=== PATIENT | male | born 1935 | race Caucasian/White ===

== ENCOUNTER 2021-07-30 10:15 | Outpatient (CLI) | payer MEDICARE | END 2021-07-30 10:16 | disposition home or self-care (01) | LOC: PET 10:15 | PROVIDERS: ATTEND Internal Medicine Hematology & Oncology | DX: C83.31 Diffuse large B-cell lymphoma, lymph nodes of head, face, and neck (principal); R19.09 Other intra-abdominal and pelvic swelling, mass and lump | CPT/HCPCS: 78815; A9552 ==

== ENCOUNTER 2021-10-01 10:15 | Outpatient (CLI) | payer MEDICARE | END 2021-10-01 10:16 | disposition home or self-care (01) | LOC: PET 10:15 | PROVIDERS: ATTEND Internal Medicine Hematology & Oncology | DX: C83.31 Diffuse large B-cell lymphoma, lymph nodes of head, face, and neck (principal) | CPT/HCPCS: 78815; A9552 ==

== ENCOUNTER 2022-01-06 11:00 | Outpatient (CLI) | payer MEDICARE | END 2022-01-06 11:01 | disposition home or self-care (01) | LOC: PET 11:00 | PROVIDERS: ATTEND Internal Medicine Hematology & Oncology | DX: C83.30 Diffuse large B-cell lymphoma, unspecified site (principal) | CPT/HCPCS: 78815; A9552 ==

== ENCOUNTER 2022-03-16 08:05 | Emergency (ER) | payer MEDICARE ==
[2022-03-16 10:13] LABS: #Eosinphils 0.5 thou/uL (0.0-0.7); #Lymphocytes 2.3 thou/uL (1.20-3.40); #Neutrophils 9.7 thou/uL (1.40-6.50); %Basophils 0.2 % (0.0-1.0); %Eosinophils 3.7 % (0.0-10.0); %Lymphocytes 17.2 % (21.0-51.0); %Monocytes 7.5 % (0.0-10.0); %Neutrophils 71.3 % (42.0-75.0); Hemoglobin 11.7 g/dL (14.0-18.0); Mean Corpuscular HGB CONC 32.1 g/dL (32.0-36.0); Mean Corpuscular Hemoglobin 31.5 pg (27.0-31.0); Mean Corpuscular Volume 98.3 fl (78.0-98.0); Mean Platelet Volume 7.2 fL (7.4-10.4); Platelet Count 122 10x3/uL (130-400); RBC Distribution Width 16.6 % (11.5-14.5); Red Blood Cell (RBC) Count 3.71 mill/uL (4.70-6.10); White Blood Cell (WBC) Count 13.6 10x3/uL (4.8-10.8)
[2022-03-16 10:25] LABS: ALT (SGPT) 26 U/L (8-55); AST (SGOT) 24 U/L (5-34); Albumin 3.3 g/dL (3.4-4.8); Alkaline Phosphatase 185 U/L (40-110); Anion Gap 13 mmol/L (10-20); BUN (Urea Nitrogen) 18 mg/dL (8.4-25.7); Bilirubin, Total 0.5 mg/dL (0.2-1.2); Calc. Creatinine Clearance 0 mL/min (70-130); Calcium 8.8 mg/dL (7.8-10.44); Carbon Dioxide 26 mmol/L (23-31); Chloride 107 mmol/L (98-107); Estimated GFR 55; Globulin 2.3 g/dL (2.4-3.5); Glucose 137 mg/dL (83-110); Protein, Total 5.6 g/dL (5.8-8.1); Sodium 142 mmol/L (136-145)
== END 2022-03-16 12:33 | disposition home or self-care (01) ==
LOC: ERS 08:05
DX: B37.41 Candidal cystitis and urethritis (principal); R32 Unspecified urinary incontinence
CPT/HCPCS: 36415; 51702; 80053; 85025

== ENCOUNTER → 2022-04-15 | Outpatient (CLI) | payer MEDICARE | LOC: PET 08:45 | PROVIDERS: ATTEND Internal Medicine Hematology & Oncology | DX: C83.31 Diffuse large B-cell lymphoma, lymph nodes of head, face, and neck (principal); R59.0 Localized enlarged lymph nodes | CPT/HCPCS: 78815; A9552 ==

== ENCOUNTER 2022-05-14 18:17 | Inpatient (IN) | payer MEDICARE ==
[2022-05-14] MEDS ORDERED: Cefepime 2 GM VIAL ONE (18:49)
[2022-05-14 18:52] LABS: Actual Bicarbonate (HCO3a) 16.2 mEq/L (22-28); Analyzer IN Cardio ER; Base Excess (BEa) -8.5 mEq/L (-2.0 to +3.0); CO2 Tension 30.7 mmHg (35.0-45.0); Calcium, Ionized (arterial) 1.22 mmol/L (1.12-1.30); Carboxyhemoglobin (COHb) 1.2 gm% (0.0-3.0); Hemoglobin (Hb) 11.6 g/dL (14.0-18.0); O2 Tension (PaO2), arterial 73.8 mmHg (> 60.0); Potassium - ABG Lab 4.21 mmol/L (3.70-5.30); pH, Arterial 7.34 (7.35-7.45)
[2022-05-14] MEDS ORDERED: Vancomycin 1 GM/200 ML (FROZEN) BAG ONE (19:02)
[2022-05-14 19:04] LABS: Puncture Site RRA
[2022-05-14 19:05] LABS: Hemoglobin 11.1 g/dL (14.0-18.0); Mean Corpuscular Hemoglobin 32.3 pg (27.0-31.0); Mean Corpuscular Volume 97.6 fl (78.0-98.0); Mean Platelet Volume 9.4 fL (7.4-10.4); Platelet Count 94 10x3/uL (130-400); RBC Distribution Width 14.9 % (11.5-14.5); Red Blood Cell (RBC) Count 3.45 mill/uL (4.70-6.10); White Blood Cell (WBC) Count 52.9 10x3/uL (4.8-10.8)
[2022-05-14 19:05] LABS: ALV-art Gradient 315.625 mmHg (0-20)
[2022-05-14 19:23] LABS: Acetaminophen Less than 10.0 mcg/mL (10.0-30.0); Alcohol Less than 10 mg/dL (Less than 10); CK (CPK) 59 U/L (30-200); Salicylate Less than 8.0 mg/dL (15.0-30.0)
[2022-05-14 19:26] LABS: ALT (SGPT) 77 U/L (8-55); AST (SGOT) 122 U/L (5-34); Albumin 3.1 g/dL (3.4-4.8); Alkaline Phosphatase 214 U/L (40-110); Anion Gap 24 mmol/L (10-20); BUN (Urea Nitrogen) 46 mg/dL (8.4-25.7); Bilirubin, Total 0.7 mg/dL (0.2-1.2); Calc. Creatinine Clearance 0 mL/min (70-130); Calcium 9.1 mg/dL (7.8-10.44); Carbon Dioxide 16 mmol/L (23-31); Chloride 106 mmol/L (98-107); Estimated GFR 35; Glucose 122 mg/dL (83-110); Lipase 16 U/L (8-78); Potassium 4.4 mmol/L (3.5-5.1); Protein, Total 5.1 g/dL (5.8-8.1); Sodium 142 mmol/L (136-145)
[2022-05-14 19:27] LABS: Band 18 % (5-11); MDiff Complete? YES; Monocytes 3 % (0-10); Neutrophil 79 % (42-75); Ovalocytes SLIGHT = 2-5 cells (100X) (0-1/hpf); Platelet Morphology Comment Appears Adequate; Polychromasia SLIGHT = 2-3 cells (100X) (0-2/hpf); Toxic Granulation SLIGHT
[2022-05-14 19:30] LABS: Phosphorus 6.4 mg/dL (2.3-4.7)
[2022-05-14 19:32] LABS: Magnesium 1.9 mg/dL (1.6-2.6)
[2022-05-14 19:52] LABS: CKMB 8.5 ng/mL (0-6.6)
[2022-05-14] MEDS ORDERED: Acetaminophen 325 MG TAB PO PRN (20:29)
[2022-05-14] MEDS ORDERED: Ondansetron PF 4 MG/2 ML Vial IVP PRN (20:29)
[2022-05-14] MEDS ORDERED: Acetaminophen 650 MG Suppository PR PRN (20:29)
[2022-05-14] MEDS ORDERED: Senokot S 8.6-50 MG TAB PO PRN (20:29)
[2022-05-14] MEDS ORDERED: Bisacodyl 10 MG SUPP PR PRN (20:29)
[2022-05-14] MEDS ORDERED: Bisacodyl 5 MG TAB PO PRN (20:29)
[2022-05-14] MEDS ORDERED: Aspirin 325 MG TAB PO SCH (20:30)
[2022-05-14 20:44] LABS: Fibrinogen 328 mg/dL (253-463)
[2022-05-14 20:45] LABS: D-Dimer Test 1.65 *mcg/mL (0.27-0.43); INR-International Normal Ratio 1.3; PTT 30.6 sec (22.9-36.1); Prothrombin Time 16.4 sec (12.0-14.7)
[2022-05-14 20:59] LABS: Platelet Count 68 10x3/uL (130-400)
[2022-05-14] MEDS ORDERED: Vancomycin HCl 1 GM in Sodium Chloride 0.9% 250 ML 300 ML IVPB SCH (21:00)
[2022-05-14 21:10] LABS: Bilirubin Negative (Negative); Blood, Urine Negative (Negative); Clarity Turbid (Clear); Glucose, Urine (Dipstick) Normal (Negative); Ketone, Urine Negative (Negative); Leukocyte 75 Leu/uL (Negative); Nitrite Negative (Negative); Protein, Urine (Dipstick) 30 mg/dL (Neg-Trace); RBC/HPF 0-3 HPF (0-3); Squamous Epithelial 0-3 HPF (0-3); Urobilinogen Normal mg/dL (Less than 2); WBC/HPF 21-50 HPF (0-3)
[2022-05-14 21:11] LABS: Bacteria/HPF 1+ HPF (None Seen)
[2022-05-14] MEDS ORDERED: Sodium Chloride 0.9% 1,000 ML IV SCH (21:30)
[2022-05-14 21:31] LABS: SARS-CoV-2 NAA Rapid Test DETECTED (NotDetected)
[2022-05-14 21:52] LABS: Troponin I 1.662 ng/mL (< 0.028)
[2022-05-14] MEDS ORDERED: Dexamethasone 10 MG/ML VIAL SLOW IVP SCH (22:00)
[2022-05-14] MEDS ORDERED: Dexmedetomidine In 0.9 % NaCl 100 ML IVPB SCH (23:45)
[2022-05-14] MEDS ORDERED: Lactated Ringer's 1,000 ML IV SCH (23:59)
[2022-05-15 00:26] LABS: Troponin I 3.113 ng/mL (< 0.028)
[2022-05-15 04:04] LABS: Hemoglobin 9.7 g/dL (14.0-18.0); Mean Corpuscular HGB CONC 33.7 g/dL (32.0-36.0); Mean Corpuscular Hemoglobin 32.7 pg (27.0-31.0); Mean Platelet Volume 9.8 fL (7.4-10.4); Platelet Count 67 10x3/uL (130-400); RBC Distribution Width 14.6 % (11.5-14.5); Red Blood Cell (RBC) Count 2.96 mill/uL (4.70-6.10); White Blood Cell (WBC) Count 33.2 10x3/uL (4.8-10.8)
[2022-05-15 04:06] LABS: Hemoglobin A1c 5.3 % (4.0-6.0)
[2022-05-15 04:19] LABS: ALT (SGPT) 76 U/L (8-55); AST (SGOT) 138 U/L (5-34); Albumin 2.7 g/dL (3.4-4.8); Alkaline Phosphatase 177 U/L (40-110); Anion Gap 16 mmol/L (10-20); BUN (Urea Nitrogen) 47 mg/dL (8.4-25.7); Bilirubin, Total 0.6 mg/dL (0.2-1.2); Calc. Creatinine Clearance 39 mL/min (70-130); Calcium 8.4 mg/dL (7.8-10.44); Carbon Dioxide 21 mmol/L (23-31); Cardiac Risk 3.6 (Less than 4.5); Chloride 112 mmol/L (98-107); Cholesterol 69 mg/dl (< 200 Desired); Estimated GFR 44; Globulin 1.9 g/dL (2.4-3.5); Glucose 116 mg/dL (83-110); HDL Cholesterol 19 mg/dL (>60 Neg Risk); LDL Cholesterol, Calculated 19 mg/dL; Magnesium 1.7 mg/dL (1.6-2.6); Potassium 4.1 mmol/L (3.5-5.1); Protein, Total 4.6 g/dL (5.8-8.1); Sodium 145 mmol/L (136-145); Triglycerides 155 mg/dL (Less than 150)
[2022-05-15 04:29] LABS: Anisocytosis SLIGHT = 6-15 cells (100X) (0-5/hpf); Band 8 % (5-11); MDiff Complete? YES; Neutrophil 92 % (42-75); Platelet Morphology Comment Appears Decreased; Polychromasia SLIGHT = 2-3 cells (100X) (0-2/hpf); Toxic Granulation SLIGHT
[2022-05-15] MEDS ORDERED: Lactated Ringer's 1,000 ML IV SCH (04:45)
[2022-05-15 04:57] LABS: Bacteria/HPF 4+ HPF (None Seen); Bilirubin Negative (Negative); Blood, Urine Negative (Negative); CAUTI Indications for Culture Alt mental st,lethar; Clarity Turbid (Clear); Glucose, Urine (Dipstick) Normal (Negative); Ketone, Urine Negative (Negative); Leukocyte 250 Leu/uL (Negative); Nitrite Negative (Negative); Protein, Urine (Dipstick) 30 mg/dL (Neg-Trace); RBC/HPF 0-3 HPF (0-3); Specific Gravity, Urine 1.019 (1.002-1.036); Squamous Epithelial None Seen HPF (0-3); Urobilinogen Normal mg/dL (Less than 2); WBC/HPF Greater than 50 HPF (0-3); pH, Urine 5.5 (5.0-9.0)
[2022-05-15 05:02] LABS: Urine Culture Reflex Yes Yes
[2022-05-15 05:10] LABS: Legionella Urinary Ag Negative (Negative); Strep pneumo Urine Ag NEGATIVE (NEGATIVE)
[2022-05-15] MEDS: Vancomycin 1 GM in Premix Bag 1 BAG IVPB SCH (06:02)
[2022-05-15] MEDS: Cefepime 2 GM in Sodium Chloride 0.9% 100 ML IVPB SCH ×2 (07:52→20:14)
[2022-05-15] MEDS: Pantoprazole 40 MG VIAL IVP SCH (07:53)
[2022-05-15] MEDS ORDERED: Aspirin Chewable 81 MG TAB PO SCH (09:00)
[2022-05-15] MEDS ORDERED: Aspirin 300 MG Suppository PR SCH (09:00)
[2022-05-15] MEDS ORDERED: Dexamethasone 10 MG/ML VIAL SLOW IVP SCH (09:00)
[2022-05-15] MEDS ORDERED: FLU VACC QS2022-23(65YR UP)/PF 240 MCG/0.7 ML SYRINGE IM ONE (09:00)
[2022-05-15] MEDS ORDERED: Propofol 1,000 MG/100 ML VIAL IV ONE (10:36)
[2022-05-15] MEDS: Lorazepam 2 MG/ML VIAL SLOW IVP PRN ×2 (10:40→23:13)
[2022-05-15] MEDS: Propofol 1,000 MG/100 ML VIAL IV PRN ×2 (10:40→23:14)
[2022-05-15] MEDS ORDERED: Fentanyl CADD 100 ML ONE (10:41)
[2022-05-15] MEDS ORDERED: NOREPINEPHRINE 8 MG/250 ML-D5W 250 ML IVPB PRN ×2 (10:46→11:54)
[2022-05-15] MEDS ORDERED: Electrolyte Replacement Protocol 1 EACH IVPB PRN (10:46)
[2022-05-15 10:57] LABS: Actual Bicarbonate (HCO3a) 16.6 mEq/L (22-28); Analyzer IN Cardio ER; Base Excess (BEa) -9.9 mEq/L (-2.0 to +3.0); CO2 Tension 38.6 mmHg (35.0-45.0); Calcium, Ionized (arterial) 1.19 mmol/L (1.12-1.30); Carboxyhemoglobin (COHb) 0.2 gm% (0.0-3.0); Hemoglobin (Hb) 10.2 g/dL (14.0-18.0); Potassium - ABG Lab 3.78 mmol/L (3.70-5.30); pH, Arterial 7.25 (7.35-7.45)
[2022-05-15] MEDS ORDERED: DISCONTINUE PREVIOUS NARCOTIC PAIN MEDICATIONS AND BENZODIAZEPINES FS PRN (10:58)
[2022-05-15] MEDS ORDERED: Dextrose 5% in Water 1,000 ML IV PRN (11:00)
[2022-05-15] MEDS ORDERED: Propofol BOLUS 1,000 MG/100 ML VIAL IV PRN (11:00)
[2022-05-15] MEDS ORDERED: Fentanyl BOLUS 250 ML IVPB PRN (11:00)
[2022-05-15] MEDS ORDERED: Morphine 4 MG/ML VIAL SLOW IVP PRN (11:00)
[2022-05-15] MEDS ORDERED: Dextrose 50% Abboject 50 ML SYRINGE IVP PRN (11:00)
[2022-05-15] MEDS ORDERED: Ventilator Sedation Protocol FS PRN (11:00)
[2022-05-15] MEDS ORDERED: Electrolyte Replacement Protocol FS PRN (11:15)
[2022-05-15] MEDS: Sodium Chloride 0.45% 1,000 ML IV SCH (11:18)
[2022-05-15] MEDS ORDERED: Magnesium 2 GM/50 ML(in water) 2 GM in Premix Bag 1 BAG IVPB SCH (11:30)
[2022-05-15] MEDS ORDERED: Vecuronium 10 MG VIAL ONE (11:36)
[2022-05-15] MEDS ORDERED: Albumin 25% 100 ML ONE (11:37)
[2022-05-15] MEDS ORDERED: Albumin 25% 25 GM/100 ML BOT IVPB SCH (12:00)
[2022-05-15] MEDS ORDERED: Vecuronium 10 MG VIAL IV SCH (12:00)
[2022-05-15] MEDS ORDERED: Lactated Ringer's 500 ML IV SCH (12:00)
[2022-05-15 13:33] LABS: Puncture Site LRA
[2022-05-15] MEDS: Vecuronium 10 MG VIAL IV PRN ×3 (14:41→23:13)
[2022-05-15] MEDS: Heparin 5,000 UNITS/ML VIAL SC SCH (20:14)
[2022-05-15] MEDS: Rosuvastatin 10 MG TAB PO SCH (20:14)
[2022-05-15] MEDS ORDERED: Sterile Water 10 ML ONE (23:10)
[2022-05-16] MEDS: Sodium Chloride 0.45% 1,000 ML IV SCH ×3 (01:12→14:53)
[2022-05-16] MEDS: Lorazepam 2 MG/ML VIAL SLOW IVP PRN ×3 (02:48→22:27)
[2022-05-16 04:59] LABS: Hemoglobin 8.6 g/dL (14.0-18.0); Mean Corpuscular HGB CONC 33.8 g/dL (32.0-36.0); Mean Corpuscular Hemoglobin 32.8 pg (27.0-31.0); Mean Corpuscular Volume 96.9 fl (78.0-98.0); Mean Platelet Volume 9.8 fL (7.4-10.4); Platelet Count 52 10x3/uL (130-400); RBC Distribution Width 14.7 % (11.5-14.5); Red Blood Cell (RBC) Count 2.62 mill/uL (4.70-6.10); White Blood Cell (WBC) Count 22.7 10x3/uL (4.8-10.8)
[2022-05-16 05:24] LABS: Band 16 % (5-11); Eosinophils 1 % (0-10); MDiff Complete? YES; Neutrophil 83 % (42-75); Platelet Morphology Comment Appears Decreased; Toxic Granulation SLIGHT
[2022-05-16 05:26] LABS: ALT (SGPT) 56 U/L (8-55); AST (SGOT) 61 U/L (5-34); Albumin 2.3 g/dL (3.4-4.8); Alkaline Phosphatase 143 U/L (40-110); Anion Gap 13 mmol/L (10-20); BUN (Urea Nitrogen) 51 mg/dL (8.4-25.7); Bilirubin, Total 0.7 mg/dL (0.2-1.2); Calc. Creatinine Clearance 47 mL/min (70-130); Calcium 8.2 mg/dL (7.8-10.44); Carbon Dioxide 21 mmol/L (23-31); Chloride 112 mmol/L (98-107); Estimated GFR 55; Globulin 1.8 g/dL (2.4-3.5); Glucose 106 mg/dL (83-110); Magnesium 2.1 mg/dL (1.6-2.6); Potassium 4.1 mmol/L (3.5-5.1); Protein, Total 4.1 g/dL (5.8-8.1); Sodium 142 mmol/L (136-145)
[2022-05-16] MEDS: Vecuronium 10 MG VIAL IV PRN ×2 (05:30→22:27)
[2022-05-16] MEDS: Vancomycin 1 GM in Premix Bag 1 BAG IVPB SCH (06:56)
[2022-05-16 07:29] LABS: Actual Bicarbonate (HCO3a) 20.9 mEq/L (22-28); Analyzer IN Cardio OR; Base Excess (BEa) -3.5 mEq/L (-2.0 to +3.0); CO2 Tension 35.5 mmHg (35.0-45.0); Calcium, Ionized (arterial) 1.15 mmol/L (1.12-1.30); Carboxyhemoglobin (COHb) 1.1 gm% (0.0-3.0); Hemoglobin (Hb) 12.4 g/dL (14.0-18.0); O2 Tension (PaO2), arterial 87.8 mmHg (> 60.0); Potassium - ABG Lab 3.97 mmol/L (3.70-5.30); pH, Arterial 7.39 (7.35-7.45)
[2022-05-16 08:09] LABS: ALV-art Gradient 295.625 mmHg (0-20); Puncture Site LRA
[2022-05-16] MEDS: Cefepime 2 GM in Sodium Chloride 0.9% 100 ML IVPB SCH ×2 (08:30→20:02)
[2022-05-16] MEDS: Dexamethasone 4 mg/ml Vial SLOW IVP SCH (08:30)
[2022-05-16] MEDS: Aspirin 300 MG Suppository PR SCH (08:31)
[2022-05-16] MEDS: Pantoprazole 40 MG VIAL IVP SCH (08:31)
[2022-05-16] MEDS: Heparin 5,000 UNITS/ML VIAL SC SCH ×2 (08:31→20:02)
[2022-05-16] MEDS ORDERED: Furosemide 20 MG/2 ML VIAL SLOW IVP SCH (14:45)
[2022-05-16 15:39] LABS: O2 Tension (PaO2), arterial 54.7 mmHg (> 60.0)
[2022-05-16] MEDS: Carvedilol 3.125 MG TAB PER TUBE SCH (16:47)
[2022-05-16] MEDS: Rosuvastatin 10 MG TAB PO SCH (20:02)
[2022-05-17] MEDS: Fentanyl CADD 100 ML IV SCH (00:18)
[2022-05-17] MEDS: Propofol 1,000 MG/100 ML VIAL IV PRN ×2 (02:24→12:26)
[2022-05-17 04:41] LABS: Hemoglobin 8.7 g/dL (14.0-18.0); Mean Corpuscular HGB CONC 32.9 g/dL (32.0-36.0); Mean Corpuscular Hemoglobin 31.4 pg (27.0-31.0); Mean Corpuscular Volume 95.2 fl (78.0-98.0); Mean Platelet Volume 10.1 fL (7.4-10.4); Platelet Count 56 10x3/uL (130-400); RBC Distribution Width 14.9 % (11.5-14.5); Red Blood Cell (RBC) Count 2.77 mill/uL (4.70-6.10); White Blood Cell (WBC) Count 21.2 10x3/uL (4.8-10.8)
[2022-05-17 04:58] LABS: ALT (SGPT) 38 U/L (8-55); AST (SGOT) 36 U/L (5-34); Albumin 2.4 g/dL (3.4-4.8); Alkaline Phosphatase 167 U/L (40-110); Anion Gap 12 mmol/L (10-20); BUN (Urea Nitrogen) 53 mg/dL (8.4-25.7); Bilirubin, Total 0.6 mg/dL (0.2-1.2); Calc. Creatinine Clearance 46 mL/min (70-130); Calcium 7.7 mg/dL (7.8-10.44); Carbon Dioxide 20 mmol/L (23-31); Chloride 109 mmol/L (98-107); Estimated GFR 53; Globulin 1.7 g/dL (2.4-3.5); Glucose 194 mg/dL (83-110); Magnesium 2.1 mg/dL (1.6-2.6); Protein, Total 4.1 g/dL (5.8-8.1); Sodium 137 mmol/L (136-145)
[2022-05-17 05:08] LABS: Anisocytosis SLIGHT = 6-15 cells (100X) (0-5/hpf); Band 5 % (5-11); Lymphocytes 2 % (21-51); MDiff Complete? YES; Neutrophil 93 % (42-75); Nucleated RBC 1 % (0); Platelet Morphology Comment Appears Decreased; Polychromasia SLIGHT = 2-3 cells (100X) (0-2/hpf)
[2022-05-17] MEDS: HumaLOG 300 UNITS/3 ML VIAL SC PRN ×2 (05:29→20:52)
[2022-05-17] MEDS: Vancomycin 1 GM in Premix Bag 1 BAG IVPB SCH (05:29)
[2022-05-17] MEDS: Sodium Chloride 0.45% 1,000 ML IV SCH (05:30)
[2022-05-17] MEDS: Lorazepam 2 MG/ML VIAL SLOW IVP PRN (06:39)
[2022-05-17 07:13] LABS: Vancomycin, Trough 14.7 ug/mL
[2022-05-17] MEDS ORDERED: Amiodarone 150 MG in Dextrose 5% in Water 100 ML IVPB SCH (08:15)
[2022-05-17] MEDS ORDERED: Digoxin 0.5 MG/2 ML AMP SLOW IVP SCH ×3 (08:15→18:30)
[2022-05-17] MEDS: Cefepime 2 GM in Sodium Chloride 0.9% 100 ML IVPB SCH ×2 (09:07→20:44)
[2022-05-17] MEDS: Dexamethasone 4 mg/ml Vial SLOW IVP SCH (09:07)
[2022-05-17] MEDS: Amiodarone 450 MG in Dextrose 5% in Water 250 ML IVPB SCH ×2 (09:07→09:08)
[2022-05-17] MEDS ORDERED: HumaLOG 300 UNITS/3 ML VIAL SC PRN (09:15)
[2022-05-17] MEDS: Heparin 5,000 UNITS/ML VIAL SC SCH ×2 (09:22→20:49)
[2022-05-17] MEDS: Pantoprazole 40 MG VIAL IVP SCH (09:22)
[2022-05-17] MEDS: Aspirin 300 MG Suppository PR SCH (09:22)
[2022-05-17] MEDS: Carvedilol 3.125 MG TAB PER TUBE SCH (09:23)
[2022-05-17] MEDS: Lactated Ringer's 1,000 ML IV SCH ×2 (09:46→21:09)
[2022-05-17 10:51] LABS: CKMB 5.3 ng/mL (0-6.6)
[2022-05-17] MEDS: Clindamycin/D5W 600 MG in Premix Bag 1 BAG IVPB SCH ×2 (15:21→22:33)
[2022-05-17 19:58] LABS: BF Color Colorless; BF RBC Count - Manual 131 /cu.mm; BF WBC/Nonhematics Ct.-Manual 641 /cu.mm; Body Fluid Source Bronchioalveol Lavag; Clarity Hazy (Clear); Tube # SYRINGE
[2022-05-17] MEDS: Rosuvastatin 10 MG TAB PO SCH (20:45)
[2022-05-18] MEDS: Propofol 1,000 MG/100 ML VIAL IV PRN ×2 (02:01→10:18)
[2022-05-18 04:37] LABS: Hemoglobin 9.1 g/dL (14.0-18.0); Mean Corpuscular HGB CONC 33.5 g/dL (32.0-36.0); Mean Corpuscular Hemoglobin 32.1 pg (27.0-31.0); Mean Platelet Volume 10.1 fL (7.4-10.4); Platelet Count 45 10x3/uL (130-400); RBC Distribution Width 14.9 % (11.5-14.5); Red Blood Cell (RBC) Count 2.82 mill/uL (4.70-6.10); White Blood Cell (WBC) Count 12.6 10x3/uL (4.8-10.8)
[2022-05-18 04:52] LABS: INR-International Normal Ratio 1.2; PTT 28.9 sec (22.9-36.1); Prothrombin Time 15.7 sec (12.0-14.7)
[2022-05-18 04:53] LABS: Phosphorus 2.8 mg/dL (2.3-4.7)
[2022-05-18 04:55] LABS: ALT (SGPT) 32 U/L (8-55); AST (SGOT) 33 U/L (5-34); Albumin 2.5 g/dL (3.4-4.8); Alkaline Phosphatase 183 U/L (40-110); Anion Gap 11 mmol/L (10-20); BUN (Urea Nitrogen) 48 mg/dL (8.4-25.7); Bilirubin, Total 0.6 mg/dL (0.2-1.2); Calc. Creatinine Clearance 56 mL/min (70-130); Calcium 7.7 mg/dL (7.8-10.44); Carbon Dioxide 21 mmol/L (23-31); Chloride 113 mmol/L (98-107); Estimated GFR 68; Globulin 1.9 g/dL (2.4-3.5); Glucose 128 mg/dL (83-110); Potassium 3.8 mmol/L (3.5-5.1); Protein, Total 4.4 g/dL (5.8-8.1); Sodium 141 mmol/L (136-145)
[2022-05-18 05:12] LABS: Band 11 % (5-11); Lymphocytes 1 % (21-51); MDiff Complete? YES; Monocytes 6 % (0-10); Neutrophil 82 % (42-75); Platelet Morphology Comment Appears Decreased; Toxic Granulation SLIGHT
[2022-05-18] MEDS: Clindamycin/D5W 600 MG in Premix Bag 1 BAG IVPB SCH (05:35)
[2022-05-18] MEDS: Vancomycin 1 GM in Premix Bag 1 BAG IVPB SCH (05:35)
[2022-05-18] MEDS: Fentanyl CADD 100 ML IV SCH (07:20)
[2022-05-18] MEDS: Amiodarone 450 MG in Dextrose 5% in Water 250 ML IVPB SCH (07:22)
[2022-05-18] MEDS ORDERED: Magnesium 2 GM/50 ML(in water) 2 GM in Premix Bag 1 BAG IVPB SCH (08:00)
[2022-05-18] MEDS ORDERED: Dexamethasone 4 MG in Sodium Chloride 0.9% 50 ML IVPB SCH (09:00)
[2022-05-18] MEDS ORDERED: Dexamethasone 4 mg/ml Vial SLOW IVP SCH (09:00)
[2022-05-18] MEDS: Digoxin 0.5 MG/2 ML AMP SLOW IVP SCH (10:13)
[2022-05-18] MEDS: Cefepime 2 GM in Sodium Chloride 0.9% 100 ML IVPB SCH ×2 (10:15→19:55)
[2022-05-18] MEDS: Aspirin 325 MG TAB PO SCH (10:15)
[2022-05-18] MEDS: Furosemide 40 MG/4 ML VIAL SLOW IVP SCH ×2 (10:15→16:13)
[2022-05-18] MEDS: Pantoprazole 40 MG VIAL IVP SCH (10:15)
[2022-05-18] MEDS: Heparin 5,000 UNITS/ML VIAL SC SCH ×2 (10:18→22:41)
[2022-05-18] MEDS ORDERED: Amiodarone 200 MG TAB PO SCH (11:15)
[2022-05-18] MEDS ORDERED: DEXTROSE 5% IVPB SCH (18:00)
[2022-05-18] MEDS ORDERED: WATER IVPB SCH (18:00)
[2022-05-18] MEDS ORDERED: SULFAMETHOXAZOLE IVPB SCH (18:00)
[2022-05-18] MEDS ORDERED: TRIMETHOPRIM IVPB SCH (18:00)
[2022-05-18] MEDS ORDERED: Sulfamethoxazole/Trimethoprim 200 MG in Dextrose 5% in Water 125 ML IVPB SCH (18:00)
[2022-05-18] MEDS ORDERED: REMDESIVIR 200 MG in Sodium Chloride 0.9% 250 ML 210 ML IV SCH (18:30)
[2022-05-18] MEDS: REMDESIVIR 100 MG in Sodium Chloride 0.9% 250 ML 230 ML IV SCH (22:36)
[2022-05-18] MEDS: Rosuvastatin 10 MG TAB PO SCH (22:42)
[2022-05-18] MEDS: Amiodarone 200 MG TAB PER TUBE SCH (22:42)
[2022-05-19] MEDS: Propofol 1,000 MG/100 ML VIAL IV PRN ×4 (01:20→22:25)
[2022-05-19] MEDS: Fentanyl CADD 100 ML IV SCH ×2 (03:53→23:15)
[2022-05-19 05:00] LABS: Hemoglobin 9.2 g/dL (14.0-18.0); Mean Corpuscular HGB CONC 34.4 g/dL (32.0-36.0); Mean Corpuscular Hemoglobin 33.2 pg (27.0-31.0); Mean Corpuscular Volume 96.4 fl (78.0-98.0); Mean Platelet Volume 8.2 fL (7.4-10.4); Platelet Count 58 10x3/uL (130-400); RBC Distribution Width 15.6 % (11.5-14.5); Red Blood Cell (RBC) Count 2.77 mill/uL (4.70-6.10)
[2022-05-19 05:54] LABS: Anisocytosis SLIGHT = 6-15 cells (100X) (0-5/hpf); Band 5 % (5-11); MDiff Complete? YES; Monocytes 3 % (0-10); Neutrophil 92 % (42-75); Platelet Morphology Comment Appears Decreased; Polychromasia SLIGHT = 2-3 cells (100X) (0-2/hpf)
[2022-05-19 06:21] LABS: Critical Call Chem Troponin I RESULT DECREASING
[2022-05-19 06:45] LABS: Albumin 2.1 g/dL (3.4-4.8)
[2022-05-19 06:46] LABS: Calcium 7.7 mg/dL (7.8-10.44); Chloride 114 mmol/L (98-107); Potassium 3.5 mmol/L (3.5-5.1); Sodium 145 mmol/L (136-145)
[2022-05-19 06:47] LABS: Glucose 127 mg/dL (83-110); Protein, Total 4.1 g/dL (5.8-8.1)
[2022-05-19 06:49] LABS: Anion Gap 13 mmol/L (10-20); Bilirubin, Total 0.5 mg/dL (0.2-1.2); Carbon Dioxide 22 mmol/L (23-31)
[2022-05-19 06:50] LABS: Alkaline Phosphatase 186 U/L (40-110)
[2022-05-19 06:51] LABS: Calc. Creatinine Clearance 57 mL/min (70-130); Estimated GFR 67
[2022-05-19 06:52] LABS: AST (SGOT) 39 U/L (5-34); BUN (Urea Nitrogen) 58 mg/dL (8.4-25.7)
[2022-05-19 06:53] LABS: ALT (SGPT) 29 U/L (8-55); Magnesium 2.1 mg/dL (1.6-2.6)
[2022-05-19] MEDS ORDERED: Potassium Bicarbonate/Cit Ac 20 MEQ TAB PER TUBE SCH (08:00)
[2022-05-19 08:01] LABS: Actual Bicarbonate (HCO3a) 22.4 mEq/L (22-28); Base Excess (BEa) -1.5 mEq/L (-2.0 to +3.0); CO2 Tension 35.4 mmHg (35.0-45.0); Calcium, Ionized (arterial) 1.14 mmol/L (1.12-1.30); Potassium - ABG Lab 3.34 mmol/L (3.70-5.30); pH, Arterial 7.42 (7.35-7.45)
[2022-05-19 08:03] LABS: Puncture Site LRA
[2022-05-19] MEDS: Amiodarone 200 MG TAB PER TUBE SCH ×2 (09:18→21:14)
[2022-05-19] MEDS: Aspirin 325 MG TAB PO SCH (09:18)
[2022-05-19] MEDS: Furosemide 40 MG/4 ML VIAL SLOW IVP SCH ×2 (09:18→15:15)
[2022-05-19] MEDS: Cefepime 2 GM in Sodium Chloride 0.9% 100 ML IVPB SCH ×2 (09:19→21:14)
[2022-05-19] MEDS: Heparin 5,000 UNITS/ML VIAL SC SCH ×2 (09:19→21:14)
[2022-05-19] MEDS: Digoxin 0.5 MG/2 ML AMP SLOW IVP SCH (09:19)
[2022-05-19] MEDS: Pantoprazole 40 MG VIAL IVP SCH (09:19)
[2022-05-19] MEDS: NOREPINEPHRINE 8 MG/250 ML-D5W 250 ML IVPB PRN (15:15)
[2022-05-19 16:38] LABS: Reference Lab Name LABCORP
[2022-05-19] MEDS: AMBISOME IVPB SCH (19:31)
[2022-05-19] MEDS: DEXTROSE 5% IVPB SCH (19:31)
[2022-05-19] MEDS: WATER IVPB SCH (19:31)
[2022-05-19] MEDS: Admixture Fee 1 EACH in Dextrose 5% in Water 10 ML FS SCH ×2 (19:42→22:00)
[2022-05-19] MEDS: REMDESIVIR 100 MG in Sodium Chloride 0.9% 250 ML 230 ML IV SCH (19:50)
[2022-05-19] MEDS: Rosuvastatin 10 MG TAB PO SCH (21:15)
[2022-05-19] MEDS ORDERED: Fentanyl CADD 100 ML ONE (22:54)
[2022-05-20 04:55] LABS: ALT (SGPT) 31 U/L (8-55); AST (SGOT) 53 U/L (5-34); Alkaline Phosphatase 189 U/L (40-110); Anion Gap 15 mmol/L (10-20); BUN (Urea Nitrogen) 69 mg/dL (8.4-25.7); Bilirubin, Total 0.4 mg/dL (0.2-1.2); Calc. Creatinine Clearance 47 mL/min (70-130); Calcium 7.6 mg/dL (7.8-10.44); Carbon Dioxide 22 mmol/L (23-31); Chloride 113 mmol/L (98-107); Estimated GFR 52; Glucose 137 mg/dL (83-110); Magnesium 2.1 mg/dL (1.6-2.6); Potassium 3.9 mmol/L (3.5-5.1); Sodium 146 mmol/L (136-145)
[2022-05-20 05:14] LABS: Anisocytosis SLIGHT = 6-15 cells (100X) (0-5/hpf); Band 10 % (5-11); Hemoglobin 9.1 g/dL (14.0-18.0); Lymphocytes 1 % (21-51); MDiff Complete? YES; Macrocytosis SLIGHT = 6-15 cells (100X) (0-5/hpf); Mean Corpuscular HGB CONC 32.5 g/dL (32.0-36.0); Mean Corpuscular Hemoglobin 31.9 pg (27.0-31.0); Mean Corpuscular Volume 98.2 fl (78.0-98.0); Mean Platelet Volume 11.2 fL (7.4-10.4); Monocytes 4 % (0-10); Myelocyte 2 % (0-0); Neutrophil 83 % (42-75); Ovalocytes SLIGHT = 2-5 cells (100X) (0-1/hpf); Platelet Count 43 10x3/uL (130-400); Platelet Morphology Comment Appears Decreased; RBC Distribution Width 15.5 % (11.5-14.5); Red Blood Cell (RBC) Count 2.86 mill/uL (4.70-6.10); White Blood Cell (WBC) Count 22.5 10x3/uL (4.8-10.8)
[2022-05-20] MEDS: Propofol 1,000 MG/100 ML VIAL IV PRN ×3 (05:15→18:27)
[2022-05-20 08:18] LABS: Actual Bicarbonate (HCO3a) 21.6 mEq/L (22-28); Base Excess (BEa) -3.3 mEq/L (-2.0 to +3.0); CO2 Tension 38.1 mmHg (35.0-45.0); Calcium, Ionized (arterial) 1.08 mmol/L (1.12-1.30); Carboxyhemoglobin (COHb) 0.9 gm% (0.0-3.0); Hemoglobin (Hb) 9.5 g/dL (14.0-18.0); Potassium - ABG Lab 3.87 mmol/L (3.70-5.30); pH, Arterial 7.37 (7.35-7.45)
[2022-05-20 08:21] LABS: ALV-art Gradient 222.425 mmHg (0-20); Puncture Site LRA
[2022-05-20] MEDS: Cefepime 2 GM in Sodium Chloride 0.9% 100 ML IVPB SCH ×2 (09:03→20:48)
[2022-05-20] MEDS: Furosemide 40 MG/4 ML VIAL SLOW IVP SCH (09:04)
[2022-05-20] MEDS: Heparin 5,000 UNITS/ML VIAL SC SCH ×2 (09:04→21:46)
[2022-05-20] MEDS: Pantoprazole 40 MG VIAL IVP SCH (09:04)
[2022-05-20] MEDS: Amiodarone 200 MG TAB PER TUBE SCH ×2 (09:04→20:49)
[2022-05-20] MEDS: Aspirin 325 MG TAB PO SCH (09:08)
[2022-05-20] MEDS: Digoxin 0.5 MG/2 ML AMP SLOW IVP SCH (09:08)
[2022-05-20 14:13] VITALS: BMI 24.5
[2022-05-20 14:38] LABS: Fungus Stain Final report (.)
[2022-05-20] MEDS: NOREPINEPHRINE 8 MG/250 ML-D5W 250 ML IVPB PRN (17:24)
[2022-05-20] MEDS: Admixture Fee 1 EACH in Dextrose 5% in Water 10 ML FS SCH ×3 (17:25→20:48)
[2022-05-20] MEDS: DEXTROSE 5% IVPB SCH (18:15)
[2022-05-20] MEDS: WATER IVPB SCH (18:15)
[2022-05-20] MEDS: AMBISOME IVPB SCH (18:15)
[2022-05-20] MEDS: Fentanyl CADD 100 ML IV SCH (18:27)
[2022-05-20] MEDS: Rosuvastatin 10 MG TAB PO SCH (20:48)
[2022-05-20] MEDS: REMDESIVIR 100 MG in Sodium Chloride 0.9% 250 ML 230 ML IV SCH (21:21)
[2022-05-20] MEDS: HumaLOG 300 UNITS/3 ML VIAL SC PRN (22:14)
[2022-05-21] MEDS: Propofol 1,000 MG/100 ML VIAL IV PRN (01:29)
[2022-05-21 04:12] VITALS: TEMP 98.8
[2022-05-21 04:25] LABS: ALT (SGPT) 33 U/L (8-55); AST (SGOT) 53 U/L (5-34); Albumin 2.2 g/dL (3.4-4.8); Alkaline Phosphatase 193 U/L (40-110); Anion Gap 16 mmol/L (10-20); BUN (Urea Nitrogen) 92 mg/dL (8.4-25.7); Bilirubin, Total 0.4 mg/dL (0.2-1.2); Calc. Creatinine Clearance 33 mL/min (70-130); Calcium 7.5 mg/dL (7.8-10.44); Carbon Dioxide 21 mmol/L (23-31); Chloride 111 mmol/L (98-107); Estimated GFR 37; Globulin 1.9 g/dL (2.4-3.5); Glucose 158 mg/dL (83-110); Magnesium 2.3 mg/dL (1.6-2.6); Potassium 4.2 mmol/L (3.5-5.1); Protein, Total 4.1 g/dL (5.8-8.1); Sodium 144 mmol/L (136-145)
[2022-05-21 04:49] LABS: Band 12 % (5-11); Hemoglobin 9.3 g/dL (14.0-18.0); Hypochromia SLIGHT = 6-15 cells (100X) (0-5/hpf); MDiff Complete? YES; Mean Corpuscular HGB CONC 32.7 g/dL (32.0-36.0); Mean Corpuscular Hemoglobin 32.4 pg (27.0-31.0); Mean Corpuscular Volume 99.1 fl (78.0-98.0); Monocytes 8 % (0-10); Neutrophil 80 % (42-75); Platelet Count 41 10x3/uL (130-400); Platelet Morphology Comment Appears Decreased; Red Blood Cell (RBC) Count 2.88 mill/uL (4.70-6.10); White Blood Cell (WBC) Count 24.5 10x3/uL (4.8-10.8)
[2022-05-21] MEDS: HumaLOG 300 UNITS/3 ML VIAL SC PRN (05:12)
[2022-05-21] MEDS ORDERED: Lidocaine 1% (PF) 30 ML VIAL ONE (07:42)
[2022-05-21] MEDS: Amiodarone 200 MG TAB PER TUBE SCH (10:45)
[2022-05-21] MEDS: Pantoprazole 40 MG VIAL IVP SCH (10:45)
[2022-05-21] MEDS: Digoxin 0.5 MG/2 ML AMP SLOW IVP SCH (10:45)
[2022-05-21] MEDS: Cefepime 2 GM in Sodium Chloride 0.9% 100 ML IVPB SCH (10:45)
[2022-05-21] MEDS: Aspirin 325 MG TAB PO SCH (10:45)
[2022-05-21] MEDS: NOREPINEPHRINE 8 MG/250 ML-D5W 250 ML IVPB PRN (12:27)
[2022-05-21 14:47] VITALS: BP 125/63
[2022-05-21] MEDS: Lorazepam 2 MG/ML VIAL SLOW IVP PRN (15:46)
[2022-05-22 15:11] LABS: Cell Block/Cytology Request REQUEST RECEIVED
[2022-05-23 15:15] LABS: O2 Tension (PaO2), arterial 50.8 mmHg (> 60.0)
[2022-05-27 10:17] LABS: Final Culture No virus isolated. (.)
== END 2022-05-21 16:52 | disposition hospice, inpatient (51) | DRG 870 ==
LOC: SUATTDRO 18:17 → ERS 18:17 → IMCU/EMU 20:23 → CCU 05-15 10:24
PROVIDERS: ADMIT Family Medicine; ATTEND Family Medicine
PROC: 8E0ZXY6 Isolation (ICD-10-PCS; 2022-05-14)
PROC: 3E03329 Introduction of Other Anti-infective into Peripheral Vein, Percutaneous Approach (ICD-10-PCS; 2022-05-14)
PROC: 5A09357 Assistance with Respiratory Ventilation, Less than 24 Consecutive Hours, Continuous Positive Airway Pressure (ICD-10-PCS; 2022-05-14)
PROC: 5A1955Z Respiratory Ventilation, Greater than 96 Consecutive Hours (ICD-10-PCS; 2022-05-15)
PROC: 0B978ZZ Drainage of Left Main Bronchus, Via Natural or Artificial Opening Endoscopic (ICD-10-PCS; 2022-05-15)
PROC: 3E033XZ Introduction of Vasopressor into Peripheral Vein, Percutaneous Approach (ICD-10-PCS; 2022-05-15)
PROC: 30233J1 Transfusion of Nonautologous Serum Albumin into Peripheral Vein, Percutaneous Approach (ICD-10-PCS; 2022-05-15)
PROC: 0BH17EZ Insertion of Endotracheal Airway into Trachea, Via Natural or Artificial Opening (ICD-10-PCS; 2022-05-15)
PROC: 0B9D8ZX Drainage of Right Middle Lung Lobe, Via Natural or Artificial Opening Endoscopic, Diagnostic (ICD-10-PCS; 2022-05-17)
PROC: XW033E5 Introduction of Remdesivir Anti-infective into Peripheral Vein, Percutaneous Approach, New Technology Group 5 (ICD-10-PCS; 2022-05-18)
PROC: 0W9930Z Drainage of Right Pleural Cavity with Drainage Device, Percutaneous Approach (ICD-10-PCS; principal; 2022-05-21)
DX: A41.89 Other specified sepsis (principal); G93.41 Metabolic encephalopathy; I21.A1 Myocardial infarction type 2; U07.1 COVID-19; J96.01 Acute respiratory failure with hypoxia; J15.9 Unspecified bacterial pneumonia; J12.82 Pneumonia due to coronavirus disease 2019; K72.00 Acute and subacute hepatic failure without coma; R65.21 Severe sepsis with septic shock; B37.1 Pulmonary candidiasis; N17.9 Acute kidney failure, unspecified; I42.9 Cardiomyopathy, unspecified; E87.20 Acidosis, unspecified; E87.0 Hyperosmolality and hypernatremia; I50.22 Chronic systolic (congestive) heart failure; I13.0 Hypertensive heart and chronic kidney disease with heart failure and stage 1 through stage 4 chronic kidney disease, or unspecified chronic kidney disease; D84.821 Immunodeficiency due to drugs; E87.3 Alkalosis; C83.30 Diffuse large B-cell lymphoma, unspecified site; J95.859 Other complication of respirator [ventilator]; J95.811 Postprocedural pneumothorax; Z51.5 Encounter for palliative care; Z66 Do not resuscitate; R74.01 Elevation of levels of liver transaminase levels; I73.9 Peripheral vascular disease, unspecified; I45.81 Long QT syndrome; D69.6 Thrombocytopenia, unspecified; R53.81 Other malaise; R00.1 Bradycardia, unspecified; R73.9 Hyperglycemia, unspecified; D64.81 Anemia due to antineoplastic chemotherapy; N18.30 Chronic kidney disease, stage 3 unspecified; T70.29XA Other effects of high altitude, initial encounter; I48.91 Unspecified atrial fibrillation; E78.00 Pure hypercholesterolemia, unspecified; Y83.8 Other surgical procedures as the cause of abnormal reaction of the patient, or of later complication, without mention of misadventure at the time of the procedure; I25.10 Atherosclerotic heart disease of native coronary artery without angina pectoris; B39.9 Histoplasmosis, unspecified; I25.2 Old myocardial infarction; Z79.899 Other long term (current) drug therapy; Z88.2 Allergy status to sulfonamides; Z98.890 Other specified postprocedural states; Z90.79 Acquired absence of other genital organ(s); Z80.3 Family history of malignant neoplasm of breast; Z80.0 Family history of malignant neoplasm of digestive organs; Z85.46 Personal history of malignant neoplasm of prostate; Z78.1 Physical restraint status
CPT/HCPCS: 31624; 36415; 36416; 36600; 71045; 80053; 80061; 80162; 80202; 80307; 81001; 81003; 81015; 82550; 82553; 82805; 83036; 83605; 83615; 83690; 83735; 83880; 84100; 84145; 84443; 84478; 84484; 84550; 85025; 85049; 85060; 85300; 85362; 85379; 85384; 85610; 85730; 86140; 86769; 87040; 87070; 87077; 87081; 87086; 87102; 87116; 87205; 87206; 87252; 87255; 87385; 87449; 87899; 88112; 88312; 89051; 93005; 93010; 93306; 93970; 94002; 94003; 94642; 94660; 94760; 96365; 96366; 96368; C9113; J0248; J0282; J0289; J0692; J1100; J1160; J1644; J1815; J1940; J2001; J2060; J2704; J3010; J3370-JW; J3475; J3490; J7050; J7070; J7120; P9047

== ENCOUNTER 2022-05-21 17:11 | Inpatient (IN) | payer OTHER ==
[2022-05-21] MEDS ORDERED: Lorazepam 2 MG/ML VIAL SLOW IVP PRN ×2 (17:30→17:32)
[2022-05-21] MEDS ORDERED: Scopolamine 1.5 mg/72 hour Patch TOP PRN (17:30)
[2022-05-21] MEDS ORDERED: diphenhydrAMINE 50 MG/ML VIAL IVP PRN (17:30)
[2022-05-21] MEDS ORDERED: Ondansetron PF 4 MG/2 ML Vial IVP PRN (17:30)
[2022-05-21] MEDS ORDERED: Acetaminophen 650 MG Suppository PR PRN (17:30)
[2022-05-21] MEDS ORDERED: Morphine 4 MG/ML VIAL SLOW IVP PRN (17:34)
[2022-05-21] MEDS ORDERED: Lorazepam 2 MG/ML VIAL SLOW IVP SCH (17:45)
[2022-05-21] MEDS ORDERED: Morphine 4 MG/ML VIAL SLOW IVP SCH (18:00)
== END 2022-05-21 19:30 | disposition expired | DRG 951 ==
LOC: CCU 17:11
PROVIDERS: ADMIT Family Medicine; ATTEND Family Medicine
DX: Z51.5 Encounter for palliative care (principal); U07.1 COVID-19; J12.82 Pneumonia due to coronavirus disease 2019; A41.89 Other specified sepsis; J96.01 Acute respiratory failure with hypoxia; I21.4 Non-ST elevation (NSTEMI) myocardial infarction; I42.9 Cardiomyopathy, unspecified; C85.90 Non-Hodgkin lymphoma, unspecified, unspecified site; N17.9 Acute kidney failure, unspecified; I48.91 Unspecified atrial fibrillation; E78.5 Hyperlipidemia, unspecified; D69.6 Thrombocytopenia, unspecified
CPT/HCPCS: J2060; J2270